=== PATIENT | male | born 1990 ===

== ENCOUNTER 2017-08-04 17:57 | Emergency (ER) | payer SELFPAY ==
[2017-08-04 18:03] VITALS: BP 114/79
--- NOTE | 2017-08-04 18:53 | ER Document Report ---
HPI - HPI Patient complains to provider of: Facial swelling Pain Level: 3 Context: Patient is a healthy 27-year-old male complaining of swelling and pain to his left jaw 3 days. Patient has a known bad tooth which has been infected in the past. Patient denies any fever or difficulty swallowing Associated Symptoms: None Exacerbated by: Denies Relieved by: Denies Similar symptoms previously: Yes Recently seen / treated by doctor: No Past Medical History - General Information source: Patient - Social History Smoking Status: Current Every Day Smoker Frequency of alcohol use: Occasional Drug Abuse: None Lives with: Family Family History: Reviewed & Not Pertinent - Medical History Medical History: Negative Vertical Provider Document - CONSTITUTIONAL Agree With Documented VS: Yes - INFECTION CONTROL TRAVEL OUTSIDE OF THE [place] IN LAST 30 DAYS: No - HEENT HEENT: Atraumatic, PERRLA Mouth Diagram: 1 - pain and swelling. no gingival abscess appreciated - NECK Neck: Normal Inspection - RESPIRATORY Respiratory: Breath Sounds Normal, No Respiratory Distress - CARDIOVASCULAR Cardiovascular: Regular Rate, Regular Rhythm - NEURO Level of Consciousness: Awake, Alert Course - Re-evaluation Re-evalutation: 08/04/17 18:55 History and physical are consistent with an uncomplicated dental infection. There is no signs of Fahad's angina, peritonsillar abscess. There is no submandibular or cervical adenopathy. There is no trismus or drooling. Patient will be treated with a course of oral antibiotics and ibuprofen. Patient is agreeable with plan and stable for discharge - Vital Signs Vital signs: Temp Pulse Resp BP Pulse Ox 98.9 F 83 18 114/79 98 08/04/17 18:02 08/04/17 18:02 08/04/17 18:02 08/04/17 18:02 08/04/17 18:02 Discharge - Discharge Clinical Impression: Dental infection Condition: Stable Disposition: HOME, SELF-CARE Instructions: Dental Infection or Abscess ([facility]), Antibiotic Therapy ([facility]), Ibuprofen (General) ([facility]) Prescriptions: Ibuprofen [Motrin 800 mg Tablet] 800 mg PO Q8H #30 tablet Penicillin V Potassium [Penicillin Vk 500 mg Tablet] 500 mg PO QID #28 tablet
== END 2017-08-04 19:28 | disposition home or self-care (01) ==
LOC: ER 17:57
DX: K04.7 Periapical abscess without sinus (principal); R22.0 Localized swelling, mass and lump, head
CPT/HCPCS: 99282

== ENCOUNTER 2018-01-28 11:58 | Emergency (ER) | payer SELFPAY ==
[2018-01-28 12:20] VITALS: BP 108/72
[2018-01-28] MEDS ORDERED: KETOROLAC TROMETHAMINE 10 MG TABLET PO ONE (12:34)
--- NOTE | 2018-01-28 12:34 | ER Document Report ---
HPI - HPI Patient complains to provider of: Tooth pain Pain Level: 3 Context: Patient is a 27-year-old male presenting to the emergency department complaining of left lower tooth pain for the last week. Patient denies fever, URI symptoms, nausea, vomiting, diarrhea. Patient states he was taking his dogs Keflex but has not taken it in the last few days. Patient states he has a history of a tooth abscess and does not want to get to that point which is why he presents to the emergency room. Past medical history: None Medications: None Allergies: None Past Medical History - General Information source: Patient - Social History Smoking Status: Current Every Day Smoker Lives with: Family Family History: Reviewed & Not Pertinent Renal/ Medical History: Denies: Hx Peritoneal Dialysis Vertical Provider Document - CONSTITUTIONAL Agree With Documented VS: Yes Notes: GENERAL: Alert, interacts well. No acute distress. HEAD: Normocephalic, atraumatic. EYES: Pupils equal, round, and reactive to light. Extraocular movements intact. ENT: Oral mucosa moist, tongue midline. Obvious dental caries throughout dentition. Patient is complaining of tooth #20 and 19. They are both partially fractured with obvious caries noted. No gum erythema, fluctuance or induration noted. no ludwigs angina. NECK: Full range of motion. Supple. Trachea midline. LUNGS: Clear to auscultation bilaterally, no wheezes, rales, or rhonchi. No respiratory distress. HEART: Regular rate and rhythm. No murmur EXTREMITIES: Moves all 4 extremities spontaneously. No edema, normal radial and dorsalis pedis pulses bilaterally. No cyanosis. BACK: no cervical, thoracic, lumbar midline tenderness. No saddle anesthesia, normal distal neurovascular exam. NEUROLOGICAL: Alert and oriented x3. Normal speech. cranial nerves II through XII grossly intact PSYCH: Normal affect, normal mood. SKIN: Warm, dry, normal turgor. No rashes or lesions noted. - INFECTION CONTROL TRAVEL OUTSIDE OF THE [place] IN LAST 30 DAYS: No Course - Re-evaluation Re-evalutation: 01/28/18 12:32 We will treat with oral antibiotics and phone numbers for dental clinic given. - Vital Signs Vital signs: Temp Pulse Resp BP Pulse Ox 98.0 F 65 16 108/72 96 01/28/18 12:18 01/28/18 12:18 01/28/18 12:18 01/28/18 12:18 01/28/18 12:18 Discharge - Discharge Clinical Impression: Dental caries, Toothache Tooth fracture Qualifiers: Encounter type: initial encounter Fracture type: closed Qualified Code(s): S02.5XXA - Fracture of tooth (traumatic), initial encounter for closed fracture Disposition: HOME, SELF-CARE Instructions: [facility], Penicillin V K ([facility]), Toothache ([facility]) Additional Instructions: You should take antibiotics and pain medication as prescribed. Please make an appointment with your dentist for follow-up in the [facility]. Please return to the emergency room for any other concerning symptoms. Prescriptions: Ketorolac Tromethamine [Toradol 10 mg Tablet] 10 mg PO Q8HP PRN #24 tablet PRN Reason: Penicillin V Potassium [Penicillin Vk 500 mg Tablet] 500 mg PO BID #20 tablet
== END 2018-01-28 13:05 | disposition home or self-care (01) ==
LOC: ER 11:58
DX: K02.9 Dental caries, unspecified (principal); S02.5XXA Fracture of tooth (traumatic), initial encounter for closed fracture; X58.XXXA Exposure to other specified factors, initial encounter; K08.89 Other specified disorders of teeth and supporting structures; F17.200 Nicotine dependence, unspecified, uncomplicated
CPT/HCPCS: 99283; J3490